=== PATIENT | female | born 1980 | race Caucasian/White ===

== ENCOUNTER → 2016-08-07 | Outpatient (CLI) | payer MEDICAID | LOC: CIMAGING 15:15 | PROVIDERS: ATTEND Family Medicine | DX: N85.2 Hypertrophy of uterus (principal); Z97.5 Presence of (intrauterine) contraceptive device | CPT/HCPCS: 76856-PO ==

== ENCOUNTER 2018-05-01 16:44 | Emergency (ER) | payer MEDICAID ==
--- NOTE | 2018-05-01 16:58 | EDPHY ---
H & P Stated Complaint: Lump in throat Time Seen by Provider: 05/01/18 16:57 HPI/ROS: CHIEF COMPLAINT: Lesion in oropharynx HISTORY OF PRESENT ILLNESS: The patient presents the emergency department after she has noticed a small lesion in her posterior oropharynx. She reports some painful swallowing. She denies any history of pharyngeal trauma or prior infection. She denies any history of fall or trauma. Patient denies a significant past medical history. The patient's surgical history is noteworthy only for . REVIEW OF SYSTEMS: A comprehensive 10 point review of systems is otherwise negative aside from elements mentioned in the history of present illness. Source: Patient - Personal History LMP (Females 10-55): Now Current Tetanus/Diphtheria Vaccine: Yes Tetanus Vaccine Date: < 10 years - Medical/Surgical History Hx Asthma: No Hx Chronic Respiratory Disease: No Hx Diabetes: No Hx Cardiac Disease: No Hx Renal Disease: No Hx Cirrhosis: No Hx Alcoholism: No Hx HIV/AIDS: No Hx Splenectomy or Spleen Trauma: No Other PMH: C section x 1, Right Index Finger surgery - Social History Smoking Status: Light smoker - Physical Exam Exam: General Appearance: Alert, no distress Eyes: Pupils equal and round no pallor or injection ENT, Mouth: Mucous membranes moist, small erythematous lesion noted in the peritonsillar tissues approximately 5 mm in size. Respiratory: There are no retractions, lungs are clear to auscultation Cardiovascular: Regular rate and rhythm Neurological: 5/5 strength noted all 4 extremities Skin: Warm and dry, no rashes Musculoskeletal: Neck is supple nontender Extremities: symmetrical, full range of motion Constitutional: Initial Vital Signs Temperature (C) 36.9 C 05/01/18 16:51 Heart Rate 67 05/01/18 16:51 Respiratory Rate 05/01/18 16:51 Blood Pressure 122/79 H 05/01/18 16:51 O2 Sat (%) 95 05/01/18 16:51 O2 Delivery Mode Room Air Allergies/Adverse Reactions: No Known Allergies Allergy (Unverified 05/01/18 16:55) Home Medications: Medication Instructions Recorded NK [No Known Home Meds] 03/01/15 Medical Decision Making ED Course/Re-evaluation: Patient presents the emergency department for evaluation of a small intraoral lesion. The patient has no evidence of trismus or airway compromise. She has no fever. There is no evidence of a obvious peritonsillar abscess or more significant deep tissue infection. The patient has been advised to follow up with our on-call Ear Nose Throat physician for a recheck tomorrow. Departure - Departure Disposition: Home, Routine, Self-Care Clinical Impression: Pharyngeal lesion Condition: Good Instructions: Acetaminophen (By mouth) Additional Instructions: 1. Tylenol as needed for pain. 2. Please contact the Ear Nose Throat physician you have been referred to tomorrow to schedule an ER follow-up visit Referrals: Adele Minor MD [Medical Doctor] - As per Instructions
[2018-05-01 17:07] VITALS: BP 135/93
== END 2018-05-01 17:41 | disposition home or self-care (01) ==
DX: J39.2 Other diseases of pharynx (principal); F17.200 Nicotine dependence, unspecified, uncomplicated

== ENCOUNTER 2018-09-08 10:56 | Emergency (ER) | payer MEDICAID | END 2018-09-08 13:09 | disposition home or self-care (01) ==